=== PATIENT | male | born 1970 ===

== ENCOUNTER 2016-11-25 10:51 | Day surgery (SDC) | payer OTHER ==
[2016-11-17 15:12] VITALS: BMI 33.2
[2016-11-25] MEDS ORDERED: Propofol 10 mg/ml Inj (20 ML) ONE (11:47)
[2016-11-25 13:19] VITALS: BP 125/81; PULSE 56; RESP 16; TEMP 97.8; O2SAT 98
== END 2016-11-25 13:59 | disposition home or self-care (01) ==
LOC: ENDO 10:51
PROVIDERS: ATTEND Internal Medicine Gastroenterology
DX: K25.9 Gastric ulcer, unspecified as acute or chronic, without hemorrhage or perforation (principal); K29.50 Unspecified chronic gastritis without bleeding; K31.9 Disease of stomach and duodenum, unspecified; K64.8 Other hemorrhoids; K52.9 Noninfective gastroenteritis and colitis, unspecified; I10 Essential (primary) hypertension; B19.20 Unspecified viral hepatitis C without hepatic coma; K74.60 Unspecified cirrhosis of liver; Z72.0 Tobacco use; Z87.440 Personal history of urinary (tract) infections
CPT/HCPCS: 43239; 45378; 88305; 88342; J2704; J7040

== ENCOUNTER 2017-08-11 14:38 | Observation (INO) | payer OTHER ==
[2017-08-11] MEDS ORDERED: Sodium Chloride 0.9% 1,000 ML IV STA (15:06)
--- NOTE | 2017-08-11 15:31 | ED PDOC ---
Arrival/HPI - General Chief Complaint: Flu-like Symptoms Time Seen by Provider: 08/11/17 14:50 Historian: Patient - History of Present Illness Narrative History of Present Illness (Text): 08/11/17 15:26 Pt is a 47yo male with Past medical history of cirrhosis biba few days history of generalized bodyache, chills, fever, nausea, vomiting and diarrhea. He notes nonbloody/bilious vomiting [id number]. Notes Tmax of 101.0 this morning and took Tylenol. He also reports mild RLQ/pelvic pain. States his urine is dark colored. Denies melena, hematemesis, hematuria, dysuria, urinary frequency, sore throat, neck pain, chest pain, sick contact, travel, any other complaint. Past Medical History - Provider Review Nursing Documentation Reviewed: Yes - Cardiac Hx Hypertension: Yes - Pulmonary Hx Asthma: Yes - Neurological Hx Neurological Disorder: No - HEENT Hx HEENT Disorder: No - Renal Hx Renal Disorder: No - Endocrine/Metabolic Hx Endocrine Disorders: No - Hematological/Oncological Hx Blood Disorders: Yes Hx Blood Transfusions: No Hx Blood Transfusion Reaction: No Hx Hepatitis C: Yes - Integumentary Hx Dermatological Disorder: No - Musculoskeletal/Rheumatological Hx Musculoskeletal Disorders: No - Gastrointestinal Hx Gastrointestinal Disorders: Yes Hx Colitis: Yes - Genitourinary/Gynecological Hx Genitourinary Disorders: No - Psychiatric Hx Psychophysiologic Disorder: No Hx Emotional Abuse: No Hx Physical Abuse: No Hx Substance Use: No - Anesthesia Hx Anesthesia Reactions: No Hx Malignant Hyperthermia: No - Suicidal Assessment Feels Threatened In Home Enviroment: No Family/Social History - Physician Review Nursing Documentation Reviewed: Yes Family/Social History: Unknown Family HX Smoking Status: Heavy Smoker > 10 Cigarettes Daily Hx Alcohol Use: No Hx Substance Use: No Allergies/Home Meds Allergies/Adverse Reactions: Allergies No Known Allergies Allergy (Verified 08/11/17 14:54) Home Medications: Home Meds Medication Instructions Recorded Confirmed cloNIDine 0.3 mg/24 hr 0.3 mg TD Q7D 11/17/16 08/11/17 [[id number]] Review of Systems - Physician Review All systems were reviewed & negative as marked: Yes - Review of Systems Constitutional: Fevers Eyes: Normal ENT: Normal Respiratory: Cough Cardiovascular: Normal Gastrointestinal: Abdominal Pain, Diarrhea, Nausea, Vomiting. absent: Constipation, Hematochezia, Hematemesis Genitourinary Male: Normal Musculoskeletal: Normal Skin: Normal Neurological: Normal Endocrine: Normal Hemo/Lymphatic: Normal Psychiatric: Normal Physical Exam Vital Signs Reviewed: Yes Vital Signs Temp Pulse Resp BP Pulse Ox 08/11/17 20:25 101.8 F H 76 18 155/82 H 96 08/11/17 17:50 69 18 148/91 H 98 08/11/17 15:03 99.0 F 73 20 150/103 H Temperature: Afebrile Blood Pressure: Hypertensive Respiratory Rate: Normal Appearance: Positive for: Well-Appearing, Non-Toxic, Comfortable Pain Distress: None Mental Status: Positive for: Alert and Oriented X 3 - Systems Exam Head: Present: Atraumatic, Normocephalic Pupils: Present: PERRL Extroacular Muscles: Present: EOMI Conjunctiva: Present: Normal Mouth: Present: Moist Mucous Membranes Neck: Present: Normal Range of Motion Respiratory/Chest: Present: Clear to Auscultation, Good Air Exchange. No: Respiratory Distress, Accessory Muscle Use Cardiovascular: Present: Regular Rate and Rhythm, Normal S1, S2. No: Murmurs Abdomen: Present: Normal Bowel Sounds, Other (Soft). No: Tenderness, Distention , Peritoneal Signs, Rebound, Guarding, McBurney's Point Tender, Rovsing's Sign Present Back: Present: Normal Inspection Upper Extremity: Present: Normal Inspection. No: Cyanosis, Edema Lower Extremity: Present: Normal Inspection. No: Edema Neurological: Present: GCS=15, CN II-XII Intact, Speech Normal Skin: Present: Warm, Dry, Normal Color. No: Rashes Psychiatric: Present: Alert, Oriented x 3, Normal Insight, Normal Concentration Medical Decision Making ED Course and Treatment: 08/11/17 20:27 Pt's temp increased in Emergency department. He was neutropenic. His labs was compared to his previous labs and leukopenia is new. abdominal/Pelvis CT IMPRESSION: Gallbladder wall thickening without definite CT evidence of acute cholecystitis. If clinically warranted further assessment by ultrasound may be obtained. Advanced cirrhosis and findings consistent with portal hypertension. EKG NSR @74bpm CXR NAD Neutropenic protocol was maintained in Emergency department. Cipro and Rocephin was ordered in Emergency department. His pain was controlled in Emergency department with medication. Case was DW Dr. Millan and pt was admitted Case was also DW with surgical manager Dr. Lazaro, and he saw patient in Emergency department. All result and plan was DW the pt and he agreed. - Lab Interpretations Lab Results: 08/11/17 15:30 08/11/17 15:30 Lab Results 08/11/17 18:17: pO2 181 H, VBG pH 7.48 H, VBG pCO2 34.0 L, VBG HCO3 25.3, VBG Total CO2 26.3, VBG O2 Sat (Calc) 99.5 H, VBG Base Excess 2.2 H, VBG Potassium 3.9, Glucose 97, Lactate 1.2, FiO2 21.0, Sodium 135.0, Chloride 106.0, Venous Blood Potassium 3.9 08/11/17 18:00: Urine Color Yellow, Urine Appearance Clear, Urine pH 6.5, Ur Specific [place] 1.015, Urine Protein Trace H, Urine Glucose (UA) Negative, Urine Ketones Negative, Urine Blood Small H, Urine Nitrate Negative, Urine Bilirubin Negative, Urine Urobilinogen 0.2, Ur Leukocyte Esterase Negative, Urine RBC 2 - 5, Urine WBC 5 - 10, Ur Epithelial Cells 4 - 5, Urine Bacteria Mod 08/11/17 15:30: Sodium 136, Potassium 3.9, Chloride 105, Carbon Dioxide 25, Anion Gap 10, BUN 15, Creatinine 0.8, Est GFR ( Amer) > 60, Est GFR (Non- Af Amer) > 60, Random Glucose 92, Calcium 8.6, Total Bilirubin 1.9 H, AST 65 H, ALT 59 H, Alkaline Phosphatase 78, Total Protein 7.1, Albumin 3.5, Globulin 3.6 , Albumin/Globulin Ratio 1.0 L, Lipase 31 08/11/17 15:30: PT 15.7 H, INR 1.43 H, APTT 38.3 H 08/11/17 15:30: Influenza Typ A,B (EIA) Negative for flu a/b 08/11/17 15:30: WBC 1.9 L* D, RBC 4.10, Hgb 13.6 L, Hct 38.9 L, MCV 94.9, MCH 33.2, MCHC 35.0, RDW 14.2, Plt Count 50 L, MPV 9.4, Gran % 60.5, Lymph % (Auto) 22.1, Nicholas % (Auto) 15.3 H, Eos % (Auto) 1.6, Baso % (Auto) 0.5, Gran # 1.15 L, Lymph # 0.4 L, Nicholas # 0.3, Eos # 0.0, Baso # 0.01 - RAD Interpretation Radiology Orders: 08/11/17 15:09 CHEST PORTABLE [RAD] Stat 08/11/17 16:50 ABD & PELVIS IV CONTRAST ONLY [CT] Stat - Medication Orders Current Medication Orders: Sodium Chloride (Sodium Chloride 0.9%) 1,000 mls @ 100 mls/hr IV .Q10H BHARGAVI Discontinued Medications Famotidine (Pepcid) 20 mg IVP STAT STA Stop: 08/11/17 15:07 Last Admin: 08/11/17 15:25 Dose: 20 mg IVP Administration Document 08/11/17 15:25 CHELSEA (Rec: 08/11/17 15:28 [place] [id number]) Charges for Administration # of IVP Administrations 1 Sodium Chloride (Sodium Chloride 0.9%) 1,000 mls @ 1,000 mls/hr IV .Q1H STA Stop: 08/11/17 16:05 Last Admin: 08/11/17 15:20 Dose: 1,000 mls/hr eMAR Start Stop Document 08/11/17 15:20 CHELSEA (Rec: 08/11/17 15:27 CHELSEA [id number]) Intravenous Solution Start Date 08/11/17 Start Time 15:20 End Date 08/11/17 End time 16:20 Total Infusion Time 60 Metronidazole (Flagyl) 500 mg in 100 mls @ 100 mls/hr IVPB STAT STA PRN Reason: Protocol Stop: 08/11/17 20:10 Last Admin: 08/11/17 19:42 Dose: 100 mls/hr eMAR Start Stop Document 08/11/17 19:42 RD (Rec: 08/11/17 19:42 RD [id number]) Intravenous Solution Start Date 08/11/17 Start Time 19:42 End Date 08/11/17 End time 20:42 Total Infusion Time 60 Ceftriaxone Sodium 1 gm/ (Sodium Chloride) 100 mls @ 200 mls/hr IVPB ONCE ONE Stop: 08/11/17 19:59 Morphine Sulfate (Morphine) 2 mg IVP STAT STA Stop: 08/11/17 17:42 Last Admin: 08/11/17 18:02 Dose: 2 mg MAR Pain Assessment Document 08/11/17 18:02 RD (Rec: 08/11/17 18:03 RD [id number]) Pain Reassessment Is this a pain reassessment? No Sleep Is patient sleeping during reassessment? No Presence of Pain Presence of Pain Yes IVP Administration Document 08/11/17 18:02 RD (Rec: 08/11/17 18:03 RD [id number]) Charges for Administration # of IVP Administrations 1 Ondansetron HCl (Zofran Inj) 4 mg IVP STAT STA Stop: 08/11/17 15:07 Last Admin: 08/11/17 15:20 Dose: 4 mg IVP Administration Document 08/11/17 15:20 CHELSEA (Rec: 08/11/17 15:28 CHELSEA [id number]) Charges for Administration # of IVP Administrations 1 Disposition/Present on Arrival - Present on Arrival Any Indicators Present on Arrival: No History of DVT/PE: No History of Uncontrolled Diabetes: No Urinary Catheter: No History of Decub. Ulcer: No History Surgical Site Infection Following: None - Disposition Have Diagnosis and Disposition been Completed?: Yes Diagnosis: Abdominal pain, Neutropenic, Cirrhosis, Cough Disposition: HOSPITALIZED Disposition Time: 19:25 Patient Plan: Admission Patient Problems: Current Active Problems Problem Status Onset Abdominal pain Acute Cirrhosis Acute Cough Acute Neutropenic Acute Condition: FAIR
[2017-08-11 15:47] LABS: BASO # 0.01 K/mm3 (0.0-2.0); BASO % 0.5 % (0.0-3.0); EOS % 1.6 % (1.5-5.0); GRAN # 1.15 (1.4-6.5); GRAN % 60.5 % (50.0-68.0); HEMATOCRIT 38.9 % (42.0-52.0); LYMPH # 0.4 (1.2-3.4); LYMPH % 22.1 % (22.0-35.0); MEAN CELL VOLUME 94.9 fl (80.0-105.0); MEAN CORPUSCULAR HEMOGLOBIN 33.2 pg (25.0-35.0); MEAN PLATELET VOLUME 9.4 fl (7.0-11.0); MONO # 0.3 (0.1-0.6); MONO % 15.3 % (1.0-6.0); RED CELL DISTRIBUTION WIDTH 14.2 % (11.5-14.5)
[2017-08-11 16:01] LABS: ALKALINE PHOSPHATASE 78 U/L (38-126); ALT/SGPT 59 U/L (7-56); AST/SGOT 65 U/L (17-59); BILIRUBIN,TOTAL 1.9 mg/dL (0.2-1.3); BLOOD UREA NITROGEN 15 mg/dL (7-21); CALCIUM 8.6 mg/dL (8.4-10.5); CARBON DIOXIDE 25 mmol/L (21-33); CHLORIDE 105 mmol/L (98-107); GFR AFRICAN-AMERICAN > 60; GLUCOSE,RANDOM 92 mg/dL (70-110); LIPASE 31 U/L (23-300); POTASSIUM 3.9 mmol/L (3.6-5.0); SODIUM 136 mmol/L (132-148); TOTAL PROTEIN 7.1 g/dL (5.8-8.3)
[2017-08-11 16:13] LABS: WHITE BLOOD COUNT 1.9 10^3/ul (4.5-11.0)
[2017-08-11 16:15] LABS: INR 1.43 (0.93-1.08); PARTIAL THROMBOPLASTIN TIME 38.3 Seconds (25.1-36.5)
--- NOTE | 2017-08-11 16:16 | RAD ---
HISTORY: cough COMPARISON: No prior. FINDINGS: LUNGS: No active pulmonary disease. PLEURA: No significant pleural effusion identified, no pneumothorax apparent. CARDIOVASCULAR: Mild cardiomegaly. Central pulmonary vasculature borderline prominent OSSEOUS STRUCTURES: No significant abnormalities. VISUALIZED UPPER ABDOMEN: Normal. OTHER FINDINGS: None. IMPRESSION: Cardiomegaly borderline central pulmonary vasculature -chronicity unknown. No consolidative infiltrate. No pleural effusion
[2017-08-11] MEDS ORDERED: Morphine 2 mg/ml ISec IVP STA (17:41)
[2017-08-11] MEDS ORDERED: Iohexol 350 MG/100 ML VIAL ONE (17:57)
[2017-08-11 18:41] LABS: PH,URINE 6.5 (4.7-8.0); URINE BILIRUBIN NEGATIVE (NEGATIVE); URINE BLOOD SMALL (NEGATIVE); URINE GLUCOSE (UA) NEGATIVE (NEGATIVE); URINE KETONE NEGATIVE (NEGATIVE); URINE LEUKOCYTE ESTERASE NEGATIVE Leu/uL (NEGATIVE); URINE PROTEIN TRACE mg/dL (<30 mg/dL); URINE UROBILINOGEN 0.2 E.U./dL (<1 E.U./dL)
[2017-08-11 18:41] LABS: VENOUS BLOOD GAS BASE EXCESS 2.2 mmol/L (0.0-2.0); VENOUS BLOOD PH 7.48 (7.32-7.43)
[2017-08-11 19:00] LABS: URINE APPEARANCE CLEAR (CLEAR); URINE COLOR YELLOW (YELLOW)
[2017-08-11 19:02] LABS: URINE BACTERIA MOD (NEG)
--- NOTE | 2017-08-11 19:07 | CT ---
PROCEDURE: CT Abdomen and Pelvis with contrast HISTORY: abdominal pain COMPARISON: Comparison is made with 03/30/2016 TECHNIQUE: Contrast dose: 94 mL of Omnipaque 350. Axial and reformatted coronal and sagittal CT images of the abdomen and pelvis were obtained after IV contrast administration Radiation dose: Total exam DLP = 1187.2 mGy-cm. This CT exam was performed using one or more of the following dose reduction techniques: Automated exposure control, adjustment of the mA and/or kV according to patient size, and/or use of iterative reconstruction technique. FINDINGS: LOWER THORAX: No evidence of acute pathology LIVER: Advanced cirrhotic changes of the liver are again noted. No evidence of discrete enhancing mass lesion. The portal vein is patent GALLBLADDER AND BILE DUCTS: Mild gallbladder wall thickening. PANCREAS: Unremarkable. No gross lesion or ductal dilatation. SPLEEN: Splenomegaly is again noted likely due to portal hypertension. ADRENALS: Unremarkable. No mass. KIDNEYS AND URETERS: The kidneys enhance symmetrically. Focal cortical defect in the right kidney is again noted. No evidence of hydronephrosis VASCULATURE: Unremarkable. No aortic aneurysm. BOWEL: Unremarkable. No obstruction. No gross mural thickening. APPENDIX: No evidence of acute appendicitis. PERITONEUM: Unremarkable. No free fluid. No free air. LYMPH NODES: Mildly enlarged lymph nodes and noted at the upper abdomen especially at the gastrohepatic ligament. No evidence of significant retroperitoneal lymphadenopathy. BLADDER: Mild urinary bladder wall thickening REPRODUCTIVE: Unremarkable. BONES: No acute fracture. Severe degenerative changes at L5-S1 OTHER FINDINGS: Fat containing bilateral inguinal hernias seen. IMPRESSION: Gallbladder wall thickening without definite CT evidence of acute cholecystitis. If clinically warranted further assessment by ultrasound may be obtained. Advanced cirrhosis and findings consistent with portal hypertension.
[2017-08-11] MEDS ORDERED: cefTRIAXone 1 gm 100 ML IVPB STA (19:10)
[2017-08-11] MEDS ORDERED: metroNIDAZOLE IV 500 mg/100 ml 500 MG/100 ML BAG IVPB STA (19:11)
--- NOTE | 2017-08-11 20:13 | CP.PCM.CON ---
<Andrzej Persaud - Last Filed: 08/11/17 20:26> History of Present Illness - History of Present Illness History of Present Illness: Surgery Consult note. Dr. Chou 47yo M with PMHx of Hepatitis C, Cirrhosis, HTN here for evaluation of nausea, vomiting, diarrhea, fever, cough. He states that the symptoms have been ongoing for the past 3 days. He also reports a history of colitis treated in February 2017. He does report mild Right sided abdominal pain. Emesis reported soon after he tries to eat, no blood, non bilious. Diarrhea reported with no blood. Cough is non-productive. Subjective fever and chills. He took antipyretics today prior to coming to the ED. He does report sick contacts, 3-4 co-workers with similar complaints of N/V/D with cough. He also reports burning while he urinates for the past 2 weeks. Denies CP/SOB. No Headaches. PMD: [place] PMHx: Hep C, Cirrhosis, HTN PSHx: inguinal hernia w/ mesh Social Hx: Current 1 pack every 2 days for 30+ years. Denies ETOH, Denies illicit drugs. Lives at home with KETTY Review of Systems - Review of Systems All systems: reviewed and no additional remarkable complaints except - Constitutional Constitutional: Chills, Fever, Malaise - Cardiovascular Cardiovascular: absent: Chest Pain, Dyspnea - Respiratory Respiratory: Cough - Gastrointestinal Gastrointestinal: Abdominal Pain, Diarrhea, Nausea, Vomiting. absent: Hematemesis, Hematochezia, Melena - Genitourinary Genitourinary: Dysuria Past Patient History - Past Social History Smoking Status: Heavy Smoker > 10 Cigarettes Daily - CARDIAC Hx Hypertension: Yes - PULMONARY Hx Asthma: Yes - NEUROLOGICAL Hx Neurological Disorder: No - HEENT Hx HEENT Problems: No - RENAL Hx Chronic Kidney Disease: No - ENDOCRINE/METABOLIC Hx Endocrine Disorders: No - HEMATOLOGICAL/ONCOLOGICAL Hx Blood Disorders: Yes Hx Blood Transfusions: No Hx Blood Transfusion Reaction: No Hx Hepatitis C: Yes - INTEGUMENTARY Hx Dermatological Problems: No - MUSCULOSKELETAL/RHEUMATOLOGICAL Hx Musculoskeletal Disorders: No - GASTROINTESTINAL Hx Gastrointestinal Disorders: Yes Hx Colitis: Yes - GENITOURINARY/GYNECOLOGICAL Hx Genitourinary Disorders: No - PSYCHIATRIC Hx Psychophysiologic Disorder: No Hx Emotional Abuse: No Hx Physical Abuse: No Hx Substance Use: No - SURGICAL HISTORY Hx Surgeries: Yes (HERNIA REPAIR) - ANESTHESIA Hx Anesthesia Reactions: No Hx Malignant Hyperthermia: No Meds Allergies/Adverse Reactions: Allergies Allergy/AdvReac Type Severity Reaction Status Date / Time No Known Allergies Allergy Verified 08/11/17 14:54 - Medications Medications: Current Medications Metronidazole (Flagyl) 500 mg in 100 mls @ 100 mls/hr IVPB STAT STA PRN Reason: Protocol Stop: 08/11/17 20:10 Last Admin: 08/11/17 19:42 Dose: 100 mls/hr Physical Exam - Constitutional Appears: Non-toxic, No Acute Distress - Head Exam Head Exam: ATRAUMATIC, NORMAL INSPECTION, NORMOCEPHALIC - Eye Exam Eye Exam: EOMI - ENT Exam ENT Exam: Mucous Membranes Moist - Respiratory Exam Respiratory Exam: NORMAL BREATHING PATTERN. absent: Accessory Muscle Use, Respiratory Distress - Cardiovascular Exam Cardiovascular Exam: absent: JVD - GI/Abdominal Exam GI & Abdominal Exam: Soft. absent: Distended, Firm, Guarding, Rebound, Rigid Additional comments: mild RUQ tenderness. No Kan's sign. Non-distended, no guarding, no rebound. - Extremities Exam Extremities exam: Positive for: normal inspection. Negative for: calf tenderness - Neurological Exam Neurological exam: Alert, Oriented x3 - Psychiatric Exam Psychiatric exam: Agitated - Skin Skin Exam: Dry, Intact, Normal Color, Warm Results - Vital Signs Recent Vital Signs: Last Vital Signs Temp 99.0 F 08/11/17 15:03 Pulse 69 08/11/17 17:50 Resp 18 08/11/17 17:50 BP 148/91 H 08/11/17 17:50 Pulse Ox 98 08/11/17 17:50 - Labs Result Diagrams: 08/11/17 15:30 08/11/17 15:30 Assessment & Plan - Assessment and Plan (Free Text) Assessment: 47yo M with likely flu-like viral illness with associated GI symptoms. Possible UTI. - CT scan noted - Abd US from 04/08 noted - Leukopenic, Thrombocytopenic - Hyperbilirubinemia, elevated LFTs Plan: - Recommend GI consult - No plans for acute surgical intervention at this time - F/u AM labs - Supportive care: IVF, IV Abx - Continue medical management as per Primary team - We will follow along clinically Further recs as per Dr. José Antonio Persaud PGY1 surgery pager: [phone] <Kurt Chou - Last Filed: 08/12/17 20:50> Results - Vital Signs Recent Vital Signs: Last Vital Signs Temp 98.7 F 08/12/17 07:30 Pulse 72 08/12/17 07:30 Resp 20 08/12/17 07:30 BP 160/90 H 08/12/17 07:30 Pulse Ox 98 08/12/17 07:30 - Labs Result Diagrams: 08/11/17 15:30 08/11/17 15:30 Labs: Laboratory Results - last 24 hr 08/11/17 08/11/17 22:00 22:40 Ammonia 32 Urine Opiates Screen Positive H Urine Methadone Screen Negative Ur Barbiturates Screen Negative Ur Phencyclidine Scrn Negative Ur Amphetamines Screen Negative U Benzodiazepines Scrn Negative U Oth Cocaine Metabols Negative U Cannabinoids Screen Positive H Assessment & Plan - Assessment and Plan (Free Text) Plan: Patient was seen, evaluated and examined by me. I agree with the assessment and plan as per the resident's note.
--- NOTE | 2017-08-11 20:21 | CP.PCM.HP ---
<Andrew Huston - Last Filed: 08/11/17 21:49> History of Present Illness - History of Present Illness History of Present Illness: CC General malaise: fever, chills, headache, body aches, and abdominal pain associated with nausea, vomiting, and diarrhea HPI Patient is a 47 year old male with a past medical history of hepatitis C, hypertension, colitis, gastritis with antral ulceration, UTI, and anemia who presents with general feeling of malaise which started about a week ago. 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 States that in the beginning of last week he experienced rhinorrea, congestion, and a cough however woke up the morning of 08/06 with headache, body aches, nausea, non bloody vomiting, and diarrhea. Admits to twelve episodes of vomiting this past Wednesday and 4-6 episodes of diarrhea each day following. Since Wednesday patient states symptoms have worsened. States that his abdominal pain that he has now is similar to when he last presented with colitis. PMD: Dr. Maldonado Ed Transporter: Dr. Holman Past Medical History: hepatitis C (IV drug use and tattoo needles, diagnosed a few years ago), hypertension, colitis, anemia Social history: 3-4 cigarettes per day for 34 years, denies alcohol use, admits to daily marijuana use Allergies: Previous medications given for hepatitis C (currently trying to get insurance approval for Cipriano- has been off medications for 6 months), Several hypertension medications (only clonidine doesn't cause an allergic reaction which consists of hives) Family history: Mother- gynecological cancer, maternal grandmother- colon cancer Medications: clonidine 0.3mg patch once a week Labs: WBC 1.9, Hemoglobin 13.6, hematocrit 38.9, lactate 1.2, T bili 1.9, AST 65 , ALT 59, Sodium 135, Potassium 3.9, Chloride 105, bicarb 25, BUN 15, Creatinine 0.8,PT 13.1, INR 1.21, PTT 34.3 Urinalysis: trace protein, small blood detected Serology: Influenza Type A,B (EIA)- negative Imaging: CT abdomen/chest Mild gallbladder wall thickening, advanced cirrhotic changes of liver with patent portal vein, mildly enlarged lymph nods and noted at the upper abdomen especially at gastrohepatic ligament, mild urinary bladder wall thickening,fat containing bilateral inguinal hernias seen. Chest X-Ray No active pulmonary disease, cardiomegaly boderline central pulmonary vasculature-chronicity, no pleural effusion or consolidation Present on Admission - Present on Admission Any Indicators Present on Admission: Yes Review of Systems - Constitutional Constitutional: Chills, Fever, Headache, Lethargy, Malaise - EENT Eyes: absent: Blurred Vision, Change in Vision Nose/Mouth/Throat: Nasal Congestion, Nasal Discharge - Cardiovascular Cardiovascular: Dyspnea. absent: Chest Pain - Respiratory Respiratory: Cough, Dyspnea, Chest Congestion - Gastrointestinal Gastrointestinal: Abdominal Pain, Diarrhea, Nausea, Vomiting - Musculoskeletal Musculoskeletal: Back Pain, Myalgias, Neck Pain - Neurological Neurological: Headaches. absent: Confusion - Psychiatric Psychiatric: absent: Anxiety, Confusion, Depression - Endocrine Endocrine: Fatigue Past Patient History - Past Social History Smoking Status: Heavy Smoker > 10 Cigarettes Daily - CARDIAC Hx Hypertension: Yes - PULMONARY Hx Asthma: Yes - NEUROLOGICAL Hx Neurological Disorder: No - HEENT Hx HEENT Problems: No - RENAL Hx Chronic Kidney Disease: No - ENDOCRINE/METABOLIC Hx Endocrine Disorders: No - HEMATOLOGICAL/ONCOLOGICAL Hx Blood Disorders: Yes Hx Blood Transfusions: No Hx Blood Transfusion Reaction: No Hx Hepatitis C: Yes - INTEGUMENTARY Hx Dermatological Problems: No - MUSCULOSKELETAL/RHEUMATOLOGICAL Hx Musculoskeletal Disorders: No - GASTROINTESTINAL Hx Gastrointestinal Disorders: Yes Hx Colitis: Yes - GENITOURINARY/GYNECOLOGICAL Hx Genitourinary Disorders: No - PSYCHIATRIC Hx Psychophysiologic Disorder: No Hx Emotional Abuse: No Hx Physical Abuse: No Hx Substance Use: No - SURGICAL HISTORY Hx Surgeries: Yes (HERNIA REPAIR) - ANESTHESIA Hx Anesthesia Reactions: No Hx Malignant Hyperthermia: No Meds Allergies/Adverse Reactions: Allergies Allergy/AdvReac Type Severity Reaction Status Date / Time No Known Allergies Allergy Verified 08/11/17 14:54 Physical Exam - Constitutional Appears: In Acute Distress - Head Exam Head Exam: ATRAUMATIC, NORMAL INSPECTION, NORMOCEPHALIC - Eye Exam Eye Exam: EOMI, Normal appearance - ENT Exam ENT Exam: Mucous Membranes Moist, Normal Exam - Neck Exam Neck exam: Positive for: Normal Inspection - Respiratory Exam Respiratory Exam: Clear to Auscultation Bilateral, NORMAL BREATHING PATTERN. absent: Rhonchi, Wheezes - Cardiovascular Exam Cardiovascular Exam: REGULAR RHYTHM, +S1, +S2 - GI/Abdominal Exam GI & Abdominal Exam: Hyperactive Bowel Sounds, Soft - Extremities Exam Additional comments: track mcnair in right arm, tattoos - Neurological Exam Neurological exam: Alert, CN II-XII Intact, Oriented x3 Additional comments: - Kernig's sign, - Brudzinski's - Skin Skin Exam: Normal Color, Warm Results - Vital Signs Recent Vital Signs: Last Vital Signs Temp 99.0 F 08/11/17 15:03 Pulse 69 08/11/17 17:50 Resp 18 08/11/17 17:50 BP 148/91 H 08/11/17 17:50 Pulse Ox 98 08/11/17 17:50 - Labs Result Diagrams: 08/11/17 15:30 08/11/17 15:30 Assessment & Plan - Assessment and Plan (Free Text) Assessment: Patient is a 47 year old male with a past medical history of hepatitis C, hypertension, colitis, gastritis with antral ulceration, UTI, and anemia who presents with general malaise, abdominal pain, nausea, vomiting, diarrhea, body aches, headache, cough and congestion. Plan: 1.Cholelithiasis rule out acute cholecystitis -Abdomnial ultrasound -Procalcitonin -GI consulted: Dr. Holman -CBC, CMP to trend LFTS, Total bili -Pain control- ultram for severe pain, motrin for mild pain -IVF@ 100 -NPO 2.Confusion with h/o cirrhosis secondary to hepatitis C rule out hepatic encephalopathy -Ammonia level ordered 3.Body aches and pain secondary to Drug withdrawal vs. Influenza vs. Atypical Pneumonia -Urine drug screen -Rapid influenza A/B negative -Legionella antigen, Mycoplasma IGG/M, S. Pneumoniae ordered -Blood cultures ordered -Procalcitonin ordered 4.Bicytopenia HIV negative -WBC count still sufficient to form immune response considering absolute neutrophil count (1140) -Check daily CBC -Peripheral smear DVT/GI prophylaxis SCDs/Karafate <Monty,Go Q - Last Filed: 08/12/17 00:46> Results - Vital Signs Recent Vital Signs: Last Vital Signs Temp 100.2 F H 08/11/17 22:46 Pulse 74 08/11/17 22:46 Resp 18 08/11/17 22:46 BP 153/89 H 08/11/17 22:46 Pulse Ox 93 L 08/11/17 22:46 - Labs Result Diagrams: 08/11/17 15:30 08/11/17 15:30 Labs: Laboratory Results - last 24 hr 08/11/17 08/11/17 22:00 22:40 Ammonia 32 Urine Opiates Screen Positive H Urine Methadone Screen Negative Ur Barbiturates Screen Negative Ur Phencyclidine Scrn Negative Ur Amphetamines Screen Negative U Benzodiazepines Scrn Negative U Oth Cocaine Metabols Negative U Cannabinoids Screen Positive H Attending/Attestation - Attestation I have personally seen and examined this patient.: Yes I have fully participated in the care of the patient.: Yes I have reviewed all pertinent clinical information: Yes Notes (Text): 08/12/17 00:45 I agree with the above mentioned note and exam by the resident with the addition of the followin47 y/o male with PMHx as listed above presented with complaints of intractable nausea and vomiting along with abdominal pain mostly in the RUQ. CT does not show acute cholecystits; Abd U/S ordered to further evaluate. Patient will be placed on obs, kept NPO, IVF hydration and analgesic medication given with non- narcotics (Morphine was given by the ED). Patient also spiked a temp of 101; pancultured and started on empiric IV Abx
[2017-08-11] MEDS ORDERED: Sodium Chloride 0.9% 1,000 ML IV SCH ×2 (20:45→21:30)
[2017-08-12 05:23] VITALS: PULSE 72; RESP 20; BMI 31.8
[2017-08-12] MEDS ORDERED: Pneumococcal 23-Valent Vaccine IM ONE (05:23)
[2017-08-12] MEDS ORDERED: Influenza Vaccine 60 mcg/0.5 mL SYR (4YR UP) IM ONE (05:23)
--- NOTE | 2017-08-12 08:01 | US ---
EXAM: US Abdomen Complete CLINICAL HISTORY: 47 years old, male; Pain; Abdominal pain; Generalized; Additional info: Abdominal pain, cholelithiasis TECHNIQUE: Real-time ultrasound of the abdomen (complete) with image documentation. COMPARISON: US - ABDOMEN COMPLETE 2016-03-30 15:40 FINDINGS: Liver: The liver is cirrhotic with increased echogenicity. The liver measures 18.8 cm in length.There are no focal lesions present. There is normal hepatopedal flow noted in the portal vein. Gallbladder: The gallbladder is well distended without evidence for gallstones. There is diffuse wall edema measuring 4 mm in thickness with small amount of pericholecystic fluid which could be secondary to portal hypertension.No sonographic Kan sign is seen. Clinical correlation to exclude acute cholecystitis. Common bile duct: The CBD measures 8 mm in diameter. No CBD stone is seen. No dilation. Pancreas: The pancreas is normal in appearance without evidence for discrete masses or pancreatitis. Kidneys: The kidneys are unremarkable. No renal calculus, hydronephrosis, solid or cystic masses are seen. The right kidney measures 13.1 and the left kidney measures 14.1 cm in length. Spleen: There is moderate splenomegaly secondary to portal hypertension. Aorta: The abdominal aorta is normal in caliber without evidence for dissection or aneurysm. Inferior vena cava: Unremarkable. IMPRESSION: 1. The liver is cirrhotic with increased echogenicity. The liver measures 18.8 cm in length.There are no focal lesions present. 2. The gallbladder is well distended without evidence for gallstones. There is diffuse wall edema measuring 4 mm in thickness with small amount of pericholecystic fluid which could be secondary to portal hypertension.No sonographic Kan sign is seen. Clinical correlation to exclude acute cholecystitis. HIDA scan may be considered if clinically warranted. 3. There is moderate splenomegaly secondary to portal hypertension.
--- NOTE | 2017-08-12 08:10 | CP.PCM.CON ---
<Monty Patiño - Last Filed: 08/12/17 08:53> History of Present Illness - History of Present Illness History of Present Illness: Initial PGY4 GI Consult Marcelino Light is a 46 yr old M w/ hx of HCV and cirrhosis who presented to the ER with complaints of malaise, fever, chills, nausea, vomiting, and diarrhea. He states that his symptoms started 1 weeks ago. He notes that he started having fevers of 101F at home. He also started having diarrhea 3 days ago. He states that the stool was semi-formed but denied any blood or melena. He notes to have RUQ pain, which was intermittent. He denies any aggravating or alleviating factors. He had a CT Abd/Pelv in the ER which revealed cirrhotic liver changes and mild gallbladder thickening. His symptoms have resolved overnight. He admits to sick contacts at work, who have similar symptoms He was admitted to the hospital in apr 2016 for colitis and found to have abnormal liver enzymes. subsequent liver testing came back positive for HCv GT 1 a. He is treatment naive. His tranasminases were elevated and his AFP is elevated. His recent EGD revealed small superficial ulcers in gatsric antrum. His Colonoscopy revealed no polyps. He was started on zepatier on 01/29. He started having loose watery stools on 01/14 when he started Nexium. After he started zepatier his diarrhea got worse. 03/11- Has finished 6 weeks of zepatier with profuse loose stools not relieved. Stool infectious work up is negative. He has not cleared HCV on labs from week 4. He had new onset itching and rash on extremities and right chest. He denies alcohol intake. His VL has decreased but not undetectable. He is still pending approval for new HCV meds. PMHx: Hep C, Cirrhosis, HTN PSHx: inguinal hernia w/ mesh Social Hx: Current 1 pack every 2 days for 30+ years. Denies ETOH, Denies illicit drugs. Lives at home with KETTY Endo Hx: EGD/Colon: 11/25/16 Past Patient History - Past Social History Smoking Status: Light Smoker < 10 Cigarettes Daily - CARDIAC Hx Hypertension: Yes - PULMONARY Hx Asthma: Yes - NEUROLOGICAL Hx Neurological Disorder: No - HEENT Hx HEENT Problems: No - RENAL Hx Chronic Kidney Disease: No - ENDOCRINE/METABOLIC Hx Endocrine Disorders: No - HEMATOLOGICAL/ONCOLOGICAL Hx Blood Disorders: Yes Hx Hepatitis C: Yes - INTEGUMENTARY Hx Dermatological Problems: No - MUSCULOSKELETAL/RHEUMATOLOGICAL Hx Musculoskeletal Disorders: No Hx Falls: No - GASTROINTESTINAL Hx Gastrointestinal Disorders: Yes - GENITOURINARY/GYNECOLOGICAL Hx Genitourinary Disorders: No - PSYCHIATRIC Hx Psychophysiologic Disorder: No Hx Emotional Abuse: No Hx Physical Abuse: No Hx Substance Use: Yes (medical cannibus) - SURGICAL HISTORY Hx Surgeries: Yes (HERNIA REPAIR) - ANESTHESIA Hx Anesthesia Reactions: No Hx Malignant Hyperthermia: No Meds Allergies/Adverse Reactions: Allergies Allergy/AdvReac Type Severity Reaction Status Date / Time No Known Allergies Allergy Verified 08/11/17 14:54 - Medications Medications: Current Medications Acetaminophen (Tylenol 325mg Tab) 650 mg PO Q6H PRN PRN Reason: Fever >100.4 F Last Admin: 08/11/17 22:06 Dose: 650 mg Clonidine HCl (Catapres-Tts3 0.3 Mg/24 Hr) 1 patch TD Q7D [facility] Last Admin: 08/12/17 02:32 Dose: Not Given Sodium Chloride (Sodium Chloride 0.9%) 1,000 mls @ 100 mls/hr IV .Q10H [facility] Last Admin: 08/11/17 20:41 Dose: 100 mls/hr Sodium Chloride (Sodium Chloride 0.9%) 1,000 mls @ 100 mls/hr IV .Q10H [facility] Last Admin: 08/11/17 21:42 Dose: Not Given Ibuprofen (Motrin Tab) 600 mg PO Q6H PRN PRN Reason: Pain, Mild (1-3) Ondansetron HCl (Zofran Inj) 4 mg IVP Q4 [facility] Last Admin: 08/12/17 05:48 Dose: Not Given Sucralfate (Carafate Tab) 1 gm PO 0630,1130,1630,2200 [facility] Last Admin: 08/12/17 02:01 Dose: 1 gm Tramadol HCl (Ultram) 50 mg PO Q6 [facility] Last Admin: 08/12/17 02:03 Dose: 50 mg Physical Exam - Constitutional Appears: No Acute Distress - Head Exam Head Exam: ATRAUMATIC, NORMOCEPHALIC - Eye Exam Eye Exam: Normal appearance - ENT Exam ENT Exam: Mucous Membranes Moist, Normal Exam - Respiratory Exam Respiratory Exam: Clear to Auscultation Bilateral, NORMAL BREATHING PATTERN. absent: Rales, Rhonchi, Wheezes, Respiratory Distress - Cardiovascular Exam Cardiovascular Exam: REGULAR RHYTHM, +S1, +S2 - GI/Abdominal Exam GI & Abdominal Exam: Normal Bowel Sounds, Soft. absent: Organomegaly, Rigid, Tenderness - Extremities Exam Extremities exam: Negative for: joint swelling, pedal edema - Neurological Exam Neurological exam: Alert, Oriented x3 - Psychiatric Exam Psychiatric exam: Normal Affect, Normal Mood - Skin Skin Exam: Dry, Intact, Normal Color, Warm Results - Vital Signs Recent Vital Signs: Last Vital Signs Temp 99.8 F H 08/12/17 04:50 Pulse 72 08/12/17 04:50 Resp 20 08/12/17 04:50 BP 149/93 H 08/12/17 04:50 Pulse Ox 93 L 08/11/17 22:46 - Labs Result Diagrams: 08/11/17 15:30 08/11/17 15:30 Labs: Laboratory Results - last 24 hr 08/11/17 08/11/17 22:00 22:40 Ammonia 32 Urine Opiates Screen Positive H Urine Methadone Screen Negative Ur Barbiturates Screen Negative Ur Phencyclidine Scrn Negative Ur Amphetamines Screen Negative U Benzodiazepines Scrn Negative U Oth Cocaine Metabols Negative U Cannabinoids Screen Positive H Assessment & Plan - Assessment and Plan (Free Text) Assessment: Marcelino Clinton is a 47M w/ hx of HTN, HCV, and cirrhosis who presented to the ER with complaints of fever, nausea, vomiting, diarrhea and chills. Etiology likely 2/2 acute viral infection. His elevated LFTs are chronic and he is pending continued tx for Hep C Elevated LFTs 2/2 cirrhosis and HCV Diarrhea etiology likely 2/2 viral infection Cirrhosis likely 2/2 HCV and ETOH Chronic HCV Plan: -continue care as per primary team -needs to follow-up with Dr. Holman, in regards to HCV treatment as an outpt -no needs for additional elevated LFTs work-up -avoid EtOH -will send for infectious stool work-up -r/o c. diff -advance diet as tolerated to regular diet -abx as per primary team -stool cultures D/W Dr. Childers <Lowell Childers - Last Filed: 08/12/17 11:39> Results - Vital Signs Recent Vital Signs: Last Vital Signs Temp 98.7 F 08/12/17 07:30 Pulse 72 08/12/17 07:30 Resp 20 08/12/17 07:30 BP 160/90 H 08/12/17 07:30 Pulse Ox 98 08/12/17 07:30 - Labs Result Diagrams: 08/11/17 15:30 08/11/17 15:30 Labs: Laboratory Results - last 24 hr 08/11/17 08/11/17 22:00 22:40 Ammonia 32 Urine Opiates Screen Positive H Urine Methadone Screen Negative Ur Barbiturates Screen Negative Ur Phencyclidine Scrn Negative Ur Amphetamines Screen Negative U Benzodiazepines Scrn Negative U Oth Cocaine Metabols Negative U Cannabinoids Screen Positive H Attending/Attestation - Attestation I have personally seen and examined this patient.: Yes I have fully participated in the care of the patient.: Yes I have reviewed all pertinent clinical information: Yes Notes (Text): 08/12/17 11:38 47 year old male with h/o HTN, HCV cirrhosis a/w n/v and diarrhea. 1. Gastroenteritis 2. Hepatitis C cirrhosis Plan: -improved now -diet as tolerated -ok for discharge -follow up with [facility] outpatient
[2017-08-12 08:57] VITALS: BP 160/90; TEMP 98.7; O2SAT 98
--- NOTE | 2017-08-12 09:09 | CP.PCM.PN ---
<David Carter - Last Filed: 08/12/17 14:40> Subjective - Date & Time of Evaluation Date of Evaluation: 08/12/17 Time of Evaluation: 06:45 - Subjective Subjective: General Surgery- Dr. Chou Patient seen and examined at bedside this AM. NO acute events overnight. Denies N/V/D F/C CP/SOB. all symptoms have resolved since yesterday Objective - Vital Signs/Intake and Output Vital Signs (last 24 hours): Temp Pulse Resp BP Pulse Ox 98.7 F 72 20 160/90 H 98 08/12/17 07:30 08/12/17 07:30 08/12/17 07:30 08/12/17 07:30 08/12/17 07:30 Intake and Output: 08/12/17 08/12/17 06:59 18:59 Intake Total 120 Balance 120 - Medications Medications: Current Medications Acetaminophen (Tylenol 325mg Tab) 650 mg PO Q6H PRN PRN Reason: Fever >100.4 F Last Admin: 08/11/17 22:06 Dose: 650 mg Clonidine HCl (Catapres-Tts3 0.3 Mg/24 Hr) 1 patch TD Q7D [facility] Last Admin: 08/12/17 02:32 Dose: Not Given Sodium Chloride (Sodium Chloride 0.9%) 1,000 mls @ 100 mls/hr IV .Q10H [facility] Last Admin: 08/11/17 20:41 Dose: 100 mls/hr Sodium Chloride (Sodium Chloride 0.9%) 1,000 mls @ 100 mls/hr IV .Q10H [facility] Last Admin: 08/11/17 21:42 Dose: Not Given Ibuprofen (Motrin Tab) 600 mg PO Q6H PRN PRN Reason: Pain, Mild (1-3) Ondansetron HCl (Zofran Inj) 4 mg IVP Q4 [facility] Last Admin: 08/12/17 05:48 Dose: Not Given Sucralfate (Carafate Tab) 1 gm PO 0630,1130,1630,2200 [facility] Last Admin: 08/12/17 02:01 Dose: 1 gm Tramadol HCl (Ultram) 50 mg PO Q6 [facility] Last Admin: 08/12/17 02:03 Dose: 50 mg - Labs Labs: PT 15.7 SECONDS (9.4-12.5) H 08/11/17 15:30 INR 1.43 (0.93-1.08) H 08/11/17 15:30 APTT 38.3 Seconds (25.1-36.5) H 08/11/17 15:30 - Constitutional Appears: Non-toxic, No Acute Distress - Head Exam Head Exam: ATRAUMATIC - Eye Exam Eye Exam: EOMI. absent: Scleral icterus - ENT Exam ENT Exam: Mucous Membranes Moist - Respiratory Exam Respiratory Exam: NORMAL BREATHING PATTERN. absent: Accessory Muscle Use, Respiratory Distress - Cardiovascular Exam Cardiovascular Exam: +S1, +S2. absent: Bradycardia, Tachycardia - GI/Abdominal Exam GI & Abdominal Exam: Soft. absent: Distended, Firm, Guarding, Rigid, Tenderness - Neurological Exam Neurological Exam: Alert, Awake, Oriented x3 - Psychiatric Exam Psychiatric exam: Normal Affect, Normal Mood - Skin Skin Exam: Intact, Warm Assessment and Plan - Assessment and Plan (Free Text) Assessment: 47M w/ abdominal pain, symptoms resolved Plan: - no acute surgical intervention at this time - patient refused care - discussed w/ Dr. Chou surgical attending David Carter PGY1 <Kurt Chou - Last Filed: 08/12/17 20:56> Objective - Vital Signs/Intake and Output Vital Signs (last 24 hours): Temp Pulse Resp BP Pulse Ox 98.7 F 72 20 160/90 H 98 08/12/17 07:30 08/12/17 07:30 08/12/17 07:30 08/12/17 07:30 08/12/17 07:30 - Labs Labs: PT 15.7 SECONDS (9.4-12.5) H 08/11/17 15:30 INR 1.43 (0.93-1.08) H 08/11/17 15:30 APTT 38.3 Seconds (25.1-36.5) H 08/11/17 15:30 Assessment and Plan - Assessment and Plan (Free Text) Plan: Patient was seen, evaluated and examined by me. I agree with the assessment and plan as per the resident's note.
--- NOTE | 2017-08-12 10:20 | CARD ---
APPROVED REPORT EKG Measurement Heart [id number] <Conclusion> Normal sinus rhythm Possible septal infarct, age undetermined LAD
--- NOTE | 2017-08-12 18:18 | CP.PCM.DIS ---
Provider - Provider Date of Admission: 08/11/17 19:36 Attending physician: Doug García MD Primary care physician: Satnam Rose MD Time Spent in preparation of Discharge (in minutes): 40 Diagnosis - Discharge Diagnosis (1) Hepatitis C Status: Acute Priority: High (2) Cirrhosis Status: Acute Priority: High (3) Abdominal pain Status: Acute Priority: High Hospital Course - Lab Results Lab Results: Most Recent Lab Values WBC 1.9 10^3/ul (4.5-11.0) L* D 08/11/17 15:30 RBC 4.10 10^6/uL (3.5-6.1) 08/11/17 15:30 Hgb 13.6 g/dL (14.0-18.0) L 08/11/17 15:30 Hct 38.9 % (42.0-52.0) L 08/11/17 15:30 MCV 94.9 fl (80.0-105.0) 08/11/17 15:30 MCH 33.2 pg (25.0-35.0) 08/11/17 15:30 MCHC 35.0 g/dl (31.0-37.0) 08/11/17 15:30 RDW 14.2 % (11.5-14.5) 08/11/17 15:30 Plt Count 50 10^3/uL (120.0-450.0) L 08/11/17 15:30 MPV 9.4 fl (7.0-11.0) 08/11/17 15:30 Gran % 60.5 % (50.0-68.0) 08/11/17 15:30 Lymph % (Auto) 22.1 % (22.0-35.0) 08/11/17 15:30 [place] % (Auto) 15.3 % (1.0-6.0) H 08/11/17 15:30 Eos % (Auto) 1.6 % (1.5-5.0) 08/11/17 15:30 Baso % (Auto) 0.5 % (0.0-3.0) 08/11/17 15:30 Gran # 1.15 (1.4-6.5) L 08/11/17 15:30 Lymph # 0.4 (1.2-3.4) L 08/11/17 15:30 [place] # 0.3 (0.1-0.6) 08/11/17 15:30 Eos # 0.0 (0.0-0.7) 08/11/17 15:30 Baso # 0.01 K/mm3 (0.0-2.0) 08/11/17 15:30 PT 15.7 SECONDS (9.4-12.5) H 08/11/17 15:30 INR 1.43 (0.93-1.08) H 08/11/17 15:30 APTT 38.3 Seconds (25.1-36.5) H 08/11/17 15:30 pO2 181 mm/Hg (30-55) H 08/11/17 18:17 VBG pH 7.48 (7.32-7.43) H 08/11/17 18:17 VBG pCO2 34.0 (40-60) L 08/11/17 18:17 VBG HCO3 25.3 mmol/l (21-28) 08/11/17 18:17 VBG Total CO2 26.3 mmol.L (22-28) 08/11/17 18:17 VBG O2 Sat (Calc) 99.5 % (40-65) H 08/11/17 18:17 VBG Base Excess 2.2 mmol/L (0.0-2.0) H 08/11/17 18:17 VBG Potassium 3.9 mmol/L (3.6-5.2) 08/11/17 18:17 Sodium 135.0 mmol/L (132-148) 08/11/17 18:17 Chloride 106.0 mmol/L (98-107) 08/11/17 18:17 Glucose 97 mg/dl (75-110) 08/11/17 18:17 Lactate 1.2 mmol/L (0.7-2.1) 08/11/17 18:17 FiO2 21.0 % 08/11/17 18:17 Sodium 136 mmol/L (132-148) 08/11/17 15:30 Potassium 3.9 mmol/L (3.6-5.0) 08/11/17 15:30 Chloride 105 mmol/L (98-107) 08/11/17 15:30 Carbon Dioxide 25 mmol/L (21-33) 08/11/17 15:30 Anion Gap 10 (10-20) 08/11/17 15:30 BUN 15 mg/dL (7-21) 08/11/17 15:30 Creatinine 0.8 mg/dl (0.8-1.5) 08/11/17 15:30 Est GFR ( Amer) > 60 08/11/17 15:30 Est GFR (Non-Af Amer) > 60 08/11/17 15:30 Random Glucose 92 mg/dL (70-110) 08/11/17 15:30 Calcium 8.6 mg/dL (8.4-10.5) 08/11/17 15:30 Total Bilirubin 1.9 mg/dL (0.2-1.3) H 08/11/17 15:30 Direct Bilirubin 0.7 mg/dL (0.0-0.4) H 08/11/17 15:00 AST 65 U/L (17-59) H 08/11/17 15:30 ALT 59 U/L (7-56) H 08/11/17 15:30 Alkaline Phosphatase 78 U/L (38-126) 08/11/17 15:30 Ammonia 32 umol/L (9-33) 08/11/17 22:00 Total Protein 7.1 g/dL (5.8-8.3) 08/11/17 15:30 Albumin 3.5 g/dL (3.0-4.8) 08/11/17 15:30 Globulin 3.6 gm/dL 08/11/17 15:30 Albumin/Globulin Ratio 1.0 (1.1-1.8) L 08/11/17 15:30 Lipase 31 U/L (23-300) 08/11/17 15:30 Venous Blood Potassium 3.9 mmol/L (3.6-5.2) 08/11/17 18:17 Urine Color Yellow (YELLOW) 08/11/17 18:00 Urine Appearance Clear (CLEAR) 08/11/17 18:00 Urine pH 6.5 (4.7-8.0) 08/11/17 18:00 Ur Specific [place] 1.015 (1.005-1.035) 08/11/17 18:00 Urine Protein Trace mg/dL (<30 mg/dL) H 08/11/17 18:00 Urine Glucose (UA) Negative mg/dL (NEGATIVE) 08/11/17 18:00 Urine Ketones Negative mg/dL (NEGATIVE) 08/11/17 18:00 Urine Blood Small (NEGATIVE) H 08/11/17 18:00 Urine Nitrate Negative (NEGATIVE) 08/11/17 18:00 Urine Bilirubin Negative (NEGATIVE) 08/11/17 18:00 Urine Urobilinogen 0.2 E.U./dL (<1 E.U./dL) 08/11/17 18:00 Ur Leukocyte Esterase Negative [place]/uL (NEGATIVE) 08/11/17 18:00 Urine RBC 2 - 5 /hpf (0-2) 08/11/17 18:00 Urine WBC 5 - 10 /hpf (0-6) 08/11/17 18:00 Ur Epithelial Cells 4 - 5 /hpf (0-5) 08/11/17 18:00 Urine Bacteria Mod (NEG) 08/11/17 18:00 Urine Opiates Screen Positive (NEGATIVE) H 08/11/17 22:40 Urine Methadone Screen Negative (NEGATIVE) 08/11/17 22:40 Ur Barbiturates Screen Negative (NEGATIVE) 08/11/17 22:40 Ur Phencyclidine Scrn Negative (NEGATIVE) 08/11/17 22:40 Ur Amphetamines Screen Negative (NEGATIVE) 08/11/17 22:40 U Benzodiazepines Scrn Negative (NEGATIVE) 08/11/17 22:40 U Oth Cocaine Metabols Negative (NEGATIVE) 08/11/17 22:40 U Cannabinoids Screen Positive (NEGATIVE) H 08/11/17 22:40 Influenza Typ A,B (EIA) Negative for flu a/b (NEGATIVE) 08/11/17 15:30 - Hospital Course Hospital Course: Patient is a 47 year old male with a past medical history of hepatitis C, hypertension, colitis, gastritis with antral ulceration, UTI, and anemia who presents with general feeling of malaise which started about a week ago. 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 States that in the beginning of last week he experienced rhinorrea, congestion, and a cough however woke up the morning of 08/06 with headache, body aches, nausea, non bloody vomiting, and diarrhea. Admits to twelve episodes of vomiting this past Wednesday and 4-6 episodes of diarrhea each day following. Since Wednesday patient states symptoms have worsened. States that his abdominal pain that he has now is similar to when he last presented with colitis. Patient left against medical advice. Was warned of all the implications of leaving without further treatment which included further infection, sepsis, and even . Patient was aware and decided to sign out AMA. Discharge Exam - Head Exam Head Exam: ATRAUMATIC Discharge Plan - Follow Up Plan Condition: FAIR Disposition: AGAINST MEDICAL ADVICE Referrals: Satnam Rose MD [Primary Care Provider] -
== END 2017-08-12 10:06 | disposition left against medical advice (07) ==
LOC: ED 14:38 → ERH 19:36 → 5RNO 08-12 00:38
PROVIDERS: ADMIT Internal Medicine; ATTEND Internal Medicine
DX: B18.2 Chronic viral hepatitis C (principal); K74.60 Unspecified cirrhosis of liver; N39.0 Urinary tract infection, site not specified; I10 Essential (primary) hypertension; J45.909 Unspecified asthma, uncomplicated; K76.6 Portal hypertension; D64.9 Anemia, unspecified; K29.70 Gastritis, unspecified, without bleeding; K52.9 Noninfective gastroenteritis and colitis, unspecified; D70.9 Neutropenia, unspecified; F17.210 Nicotine dependence, cigarettes, uncomplicated; Z87.11 Personal history of peptic ulcer disease; Z80.0 Family history of malignant neoplasm of digestive organs

== ENCOUNTER 2018-03-18 08:20 | Day surgery (SDC) | payer OTHER ==
[2018-03-16 20:46] VITALS: BMI 31.8
[2018-03-18] MEDS ORDERED: Phenylephrine 10 mg/ml Inj ONE (08:52)
[2018-03-18] MEDS ORDERED: Iohexol 350mgl/ml 50 ML ONE (08:53)
[2018-03-18] MEDS ORDERED: Nitroglycerin 50mg in D5W 50 MG/250 ML BOTTLE IV ONE (08:53)
[2018-03-18] MEDS ORDERED: Iodixanol 320 MG/ML 200 ML BOTTLE IV ONE (08:53)
[2018-03-18] MEDS ORDERED: Iodixanol 320 MG/ML 100 ML BOTTLE IV ONE (08:53)
[2018-03-18] MEDS ORDERED: Lidocaine PF 2% (5 ml) Inj (For Cardiac Arrhy) ONE (08:54)
[2018-03-18] MEDS ORDERED: Adenosine 90 mg/30mL IV ONE (08:54)
[2018-03-18] MEDS ORDERED: Verapamil 2 ML ONE (08:55)
[2018-03-18] MEDS ORDERED: Midazolam 2 MG/2 ML VIAL ONE ×2 (09:17→09:21)
[2018-03-18] MEDS ORDERED: Bacitracin 500 Units/gm Oint Foilpak UD TOP ONE (10:06)
[2018-03-18 12:06] VITALS: TEMP 97.6
--- NOTE | 2018-03-18 13:50 | CARDCATH ---
PROCEDURE DATE: 03/18/2018 INDICATIONS: Mr. Clinton is a 48-year-old male who was recently admitted to [facility] for evaluation of chest pain. He was noted to have positive troponin and subsequently discharged home and left against medical advice. He subsequently presented to [facility], where he was told to have a procedure, but he did not feel comfortable as his primary care physician was in [facility]. He called his primary care physician, Dr. Rose, who recommended him to come to the hospital for further evaluation and treatment. He was noted to have symptoms of unstable angina and ongoing episodes of chest pain, for which he was brought to the medical lab assistant for further evaluation and treatment. PROCEDURES PERFORMED: Left heart catheterization with selective left and right coronary angiogram via left radial artery approach, 6-Liberian left radial artery access, wrist band for hemostasis. TECHNIQUE OF PROCEDURE: After obtaining informed consent, the patient was brought to the cardiac cath suite in post-absorptive, non-sedated state. The patient was prepped and draped in the usual sterile fashion. A 2% lidocaine was used for infiltration of anesthesia. Using modified Seldinger technique, a 6-Liberian sheath was introduced into the left radial artery. Subsequently, over a J-wire, JR4 and JL4 diagnostic catheters were used to engage the left and right coronary systems. The angiograms were obtained in different orthogonal views. 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 Left main large-sized vessel, gives off LAD and diagonal branches. LAD has a mid 50% stenosis, moderate lesion, diagonal; medium-sized vessel with nonobstructive disease, normal left ventricular ejection fraction, end-diagnostic pressure was 15 mmHg. 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 RECOMMENDATIONS: Continue the patient on aspirin and beta-blockers. Add statins and nitrates. The patient can be discharged home in 3 hours. Thank you, Dr. Rose for letting me participate in the care of your patient. Jovanny Alex MD [facility] # [id number]
[2018-03-18] MEDS ORDERED: Bacitracin 500 Units/gm Oint Foilpak UD ONE (14:12)
[2018-03-18 14:47] VITALS: O2SAT 97
[2018-03-18 16:59] VITALS: BP 158/96; PULSE 63; RESP 12
== END 2018-03-18 18:19 | disposition home or self-care (01) ==
LOC: CATH 08:20 → 2RSO 10:47 → CATH 18:19
PROVIDERS: ATTEND Internal Medicine Interventional Cardiology
DX: I25.110 Atherosclerotic heart disease of native coronary artery with unstable angina pectoris (principal); Q24.5 Malformation of coronary vessels; I48.91 Unspecified atrial fibrillation; I10 Essential (primary) hypertension; J45.909 Unspecified asthma, uncomplicated; K74.60 Unspecified cirrhosis of liver; F19.11 Other psychoactive substance abuse, in remission; Z86.19 Personal history of other infectious and parasitic diseases; F12.90 Cannabis use, unspecified, uncomplicated; Z88.8 Allergy status to other drugs, medicaments and biological substances
CPT/HCPCS: 87086; 93458; 99152; C1769; C1894; J1644 ×2; J2250; J3010; Q9966

== ENCOUNTER 2018-03-27 21:51 | Observation (INO) | payer OTHER ==
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
[2018-03-27 22:59] LABS: INR 1.32; PROTHROMBIN TIME 15.1 SECONDS (9.4-12.5)
[2018-03-27 23:01] LABS: EOS # 0.1 (0.0-0.7); EOS % 3.9 % (1.5-5.0); GRAN # 2.12 (1.4-6.5); GRAN % 63.1 % (50.0-68.0); HEMOGLOBIN 12.9 g/dL (14.0-18.0); LYMPH # 0.9 (1.2-3.4); LYMPH % 26.2 % (22.0-35.0); MEAN CORPUSCULAR HEMOGLOBIN 33.4 pg (25.0-35.0); MEAN CORPUSCULAR HGB CONC 36.3 g/dl (31.0-37.0); MEAN PLATELET VOLUME 8.9 fl (7.0-11.0); MONO # 0.2 (0.1-0.6); MONO % 6.8 % (1.0-6.0); RBC 3.86 10^6/uL (3.5-6.1); RED CELL DISTRIBUTION WIDTH 14.9 % (11.5-14.5); WHITE BLOOD COUNT 3.4 10^3/ul (4.5-11.0)
[2018-03-27 23:02] LABS: PARTIAL THROMBOPLASTIN TIME 35.5 Seconds (25.1-36.5)
[2018-03-27 23:09] LABS: ALBUMIN 3.5 g/dL (3.0-4.8); ALT/SGPT 52 U/L (7-56); AST/SGOT 52 U/L (17-59); BLOOD UREA NITROGEN 20 mg/dL (7-21); CALCIUM 8.5 mg/dL (8.4-10.5); GFR AFRICAN-AMERICAN > 60; GFR NON-AFRICAN AMERICAN > 60
[2018-03-27 23:19] LABS: TROPONIN I < 0.01 ng/mL
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
[2018-03-28] MEDS ORDERED: Potassium Chloride 20 mEq ER Tab PO ONE ×2 (03:15→05:00)
[2018-03-28 04:53] VITALS: BMI 28.6
[2018-03-28 07:48] LABS: EOS # 0.1 (0.0-0.7); EOS % 4.3 % (1.5-5.0); GRAN # 1.05 (1.4-6.5); HEMOGLOBIN 11.8 g/dL (14.0-18.0); LYMPH # 0.8 (1.2-3.4); LYMPH % 36.7 % (22.0-35.0); MEAN CELL VOLUME 93.1 fl (80.0-105.0); MEAN CORPUSCULAR HEMOGLOBIN 32.5 pg (25.0-35.0); MEAN CORPUSCULAR HGB CONC 34.9 g/dl (31.0-37.0); MONO # 0.2 (0.1-0.6); RBC 3.63 10^6/uL (3.5-6.1); RED CELL DISTRIBUTION WIDTH 15.1 % (11.5-14.5)
[2018-03-28 07:54] LABS: ALB/GLOB RATIO 0.9 (1.1-1.8); ALBUMIN 2.9 g/dL (3.0-4.8); ALT/SGPT 43 U/L (7-56); AST/SGOT 44 U/L (17-59); BLOOD UREA NITROGEN 21 mg/dL (7-21); CALCIUM 8.1 mg/dL (8.4-10.5); GFR AFRICAN-AMERICAN > 60; GFR NON-AFRICAN AMERICAN > 60; HDL CHOLESTEROL 28 mg/dL (29-60)
[2018-03-28 07:58] LABS: WHITE BLOOD COUNT 2.1 10^3/ul (4.5-11.0)
[2018-03-28 08:02] LABS: TROPONIN I 0.02 ng/mL
[2018-03-28 08:09] LABS: LDL CHOLESTEROL < 30 mg/dL (0-129)
--- NOTE | 2018-03-28 08:25 | CARD ---
APPROVED REPORT Date of service: 03/27/2018 EKG Measurement Heart [id number] <Conclusion> Normal sinus rhythm Minimal voltage criteria for LVH, may be normal variant Borderline ECG
--- NOTE | 2018-03-28 08:41 | RAD ---
Date of service: 03/27/2018 HISTORY: Chest pain COMPARISON: 08/11/2017. FINDINGS: LUNGS: The lungs are well inflated and clear. PLEURA: No significant pleural effusion identified, no pneumothorax apparent. CARDIOVASCULAR: Normal. OSSEOUS STRUCTURES: No significant abnormalities. VISUALIZED UPPER ABDOMEN: Normal. OTHER FINDINGS: None. IMPRESSION: No active pulmonary disease.
[2018-03-28 09:40] VITALS: O2SAT 98
[2018-03-28] MEDS ORDERED: Enoxaparin 40 mg Syringe SC SCH (10:00)
[2018-03-28 12:13] VITALS: BP 151/103; PULSE 61; RESP 20; TEMP 98
[2018-03-28 12:34] LABS: PH,URINE 6.5 (4.7-8.0); URINE APPEARANCE CLEAR (CLEAR); URINE BILIRUBIN NEGATIVE (NEGATIVE); URINE BLOOD TRACE-INTACT (NEGATIVE); URINE COLOR YELLOW (YELLOW); URINE GLUCOSE (UA) NEGATIVE (NEGATIVE); URINE LEUKOCYTE ESTERASE SMALL Leu/uL (NEGATIVE); URINE PROTEIN NEGATIVE mg/dL (<30 mg/dL)
[2018-03-28 12:38] LABS: URINE AMORPHOUS SEDIMENT FEW; URINE BACTERIA MANY (NEG)
[2018-03-28 12:58] LABS: BARBITURATES, UR NEGATIVE (NEGATIVE); BENZODIAZEPINES, UR NEGATIVE (NEGATIVE); OPIATES, UR NEGATIVE (NEGATIVE); PHENCYCLIDINE, UR NEGATIVE (NEGATIVE)
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
--- NOTE | 2018-03-28 22:38 | CARD ---
APPROVED REPORT Date of service: 03/28/2018 EKG Measurement Heart [id number] <Conclusion> Normal sinus rhythm Minimal voltage criteria for LVH, may be normal variant Nonspecific T wave abnormality Abnormal ECG
[2018-03-29] MEDS ORDERED: Pantoprazole 40 mg EC Tab PO SCH (07:30)
== END 2018-03-28 15:12 | disposition left against medical advice (07) ==
LOC: ED 21:51 → ERH 23:37 → 2RNO 03-28 01:35
PROVIDERS: ADMIT Hospitalist; ATTEND Internal Medicine
DX: F41.9 Anxiety disorder, unspecified (principal); R07.9 Chest pain, unspecified; B19.20 Unspecified viral hepatitis C without hepatic coma; D64.9 Anemia, unspecified; I10 Essential (primary) hypertension; I25.10 Atherosclerotic heart disease of native coronary artery without angina pectoris; I48.91 Unspecified atrial fibrillation; J45.909 Unspecified asthma, uncomplicated; K29.70 Gastritis, unspecified, without bleeding; K74.60 Unspecified cirrhosis of liver; F17.210 Nicotine dependence, cigarettes, uncomplicated; I25.2 Old myocardial infarction
CPT/HCPCS: 36415; 71045; 80053; 80061; 80324; 80345; 80346; 80349; 80353; 80358; 80361; 81001; 82140; 82550; 83615; 83735; 83992; 84100; 84484; 85025; 85610; 85730; 93005; 99285; C9113; G0378